=== PATIENT | female | born 1995 | race African-American/Black ===

== ENCOUNTER 2024-04-26 15:48 | Emergency (ER) | payer OTHER, MEDICAID ==
[~2024-04-26] VITALS: Ht 165.1 cm; Wt 104.0 kg
[2024-04-26 16:38] VITALS: BP 135/70; PULSE 72; RESP 16; TEMP 36.9; O2SAT 100
== END 2024-04-26 20:33 | disposition home or self-care (01) ==
LOC: ER 15:48
DX: M79.645 Pain in left finger(s) (principal)
CPT/HCPCS: 73130; 99283